=== PATIENT | female | born 1995 | race Caucasian/White ===

== ENCOUNTER → 2022-08-13 | Outpatient (CLI) | payer MEDICAID | LOC: M OUTALCOH 10:46 | PROVIDERS: ATTEND Psychiatry & Neurology Psychiatry | DX: F10.10 Alcohol abuse, uncomplicated (principal) ==

== ENCOUNTER 2022-09-11 13:46 | Outpatient (RCR) | payer MEDICAID | END 2022-09-15 | LOC: M OUTALCOH 13:46 | PROVIDERS: ATTEND Psychiatry & Neurology Psychiatry | DX: F14.20 Cocaine dependence, uncomplicated (principal); F12.10 Cannabis abuse, uncomplicated; F11.20 Opioid dependence, uncomplicated; Z72.0 Tobacco use ==

== ENCOUNTER 2022-10-15 09:00 | Outpatient (RCR) | payer MEDICAID | END 2022-10-16 | LOC: M OUTALCOH 09:00 | PROVIDERS: ATTEND Psychiatry & Neurology Psychiatry | DX: F14.20 Cocaine dependence, uncomplicated (principal); F12.10 Cannabis abuse, uncomplicated; Z72.0 Tobacco use; F11.20 Opioid dependence, uncomplicated ==